=== PATIENT | male | born 1970 | race Caucasian/White ===

== ENCOUNTER → 2017-01-18 | Outpatient (CLI) | payer SELFPAY ==
--- NOTE | 2017-01-18 16:46 | KCIC ---
Coronary calcium score CT chest without contrast History: Diabetes, hyperlipidemia, hypertension Technique: With retrospective electrocardiogram gating 3.0 mm thick axial reconstructed noncontrast images of the chest at the level of the coronary arteries was performed. Images were post processed on a [employer] workstation and calcium score calculated using the modified Agatston Janowitz protocol. PQRS STATEMENT:One or more of the following in the visualized dose reduction techniques were utilized for this study: 1. Automatic exposure control, 2. Adjustment of the mA and/or kV according to patient size, 3. Use of iterative reconstruction technique Findings: Total coronary calcium score is 0. This places the patient in the lowest percentile rank which means that nearly all men of this age have a higher calcium score than this patient. There is no calcified plaque burden and very low cardiovascular disease risk. This is based on the calcium score of 0 of the left main coronary artery, 0 of the left anterior descending artery, score of 0 of the left circumflex artery and score of 0 of the right coronary artery. Noncoronary findings demonstrate no significant abnormality. Impression: Total coronary calcium score is 0. This places the patient in the lowest percentile rank which means that nearly all men of this age have a higher calcium score than this patient. There is no calcified plaque burden and very low cardiovascular disease risk. Electronically signed by: Raad Saleh MD (01/18/2017 4:43 PM)
== END | disposition home or self-care (01) ==
LOC: KCIC CT 08:00
PROVIDERS: ATTEND Family Medicine
DX: E11.9 Type 2 diabetes mellitus without complications (principal); E78.5 Hyperlipidemia, unspecified; I10 Essential (primary) hypertension; Z91.89 Other specified personal risk factors, not elsewhere classified
CPT/HCPCS: 75571

== ENCOUNTER → 2019-04-15 | Day surgery (SDC) | payer SELFPAY ==
[~2019-04-15] MED LIST: GLIP10TA13 PO; IV RINGERS,LACTATED 1000ML 1,000 ML IV SCH; LIRA0.6P SQ; LISI-338 PO; PROPOFOL 20 ML IV ONE; PROPOFOL 60 ML IV ONE; SILD20TA2 PO; TEST2.5G9 TD
[2019-04-15 14:30] VITALS: BP 121/57
--- NOTE | 2019-04-16 15:07 | PATHOLOGY ---
[facility] Accession Number: [id number] . 01 Material submitted: . PART A: stomach - ANTRUM BIOPSY PART B: colon - ASCENDING COLON POLYP. Modifiers: ascending PART C: colon - TRANSVERSE COLON POLYP. Modifiers: transverse PART D: sigmoid colon - SIGMOID POLYP . 01 Clinical history: . CRCS . 02 Diagnosis: A. Gastric biopsies, gastric antrum: - Congestion and focal slight chronic inflammation. . B. Colon biopsy, ascending colon polyp: - Tubular adenoma. . C. Colon biopsy, transverse colon polyp: - Sessile serrated polyp/adenoma. . D. Colon biopsy, sigmoid polyp: - Tubular adenoma. (JPM:[facility] 04/16/2019) [facility] 04/16/2019 1033 Local . 02 Comment: Sections of the gastric antral biopsy show congestion and focal slight chronic inflammation. A properly controlled immunoperoxidase stain for Helicobacter is negative for Helicobacter organisms. . Sections of the ascending colon and sigmoid colon biopsies reveal tubular adenomas showing no high-grade dysplasia or evidence of malignancy. . Sections of the transverse colon biopsy reveal a serrated polyp/adenoma which also shows no high-grade dysplasia or evidence of malignancy. (JPM:[facility] 04/16/2019) . Special stain performed: Immunoperoxidase for Helicobacter on A1. . 02 Electronically signed: . Marvin Warren MD, Pathologist NPI- [id number] . 01 Gross description: . A. Received in formalin labeled "Néstor Banuelos, antrum BX-gastritis," are 2 segments of yang soft tissue measuring 0.9 x 0.3 x 0.3 cm in aggregate dimensions and ranging from 0.4 to 0.5 cm in maximum dimension. The specimen is submitted entirely in cassette A1. . B. Received in formalin labeled "Néstor Banuelos, ascending colon polyp," is a single segment of yang soft tissue measuring 0.5 cm in maximum dimension. The specimen is entirely submitted in cassette B1. . C. Received in formalin labeled "Néstor Banuelos, transverse colon polyp," is a 0.9 x 0.5 x 0.4 cm polypoid piece of yang soft tissue. The margin is inked and the tissue is sectioned perpendicular to the margin and submitted entirely in cassette C1. . D. Received in formalin labeled "Néstor Banuelos, sigmoid polyp," is a 0.6 x 0.6 x 0.5 cm polypoid piece of yang soft tissue. The margin is inked and the tissue is sectioned perpendicular to the margin and submitted entirely in cassette D1. (TSD; 04/15/2019) TOB/TOB 04/15/20192025 Local . 02 Pathologist provided ICD-10: K29.50, D12.2, D12.3, D12.5 . 02 CPT . 945533, 617022, 065606, 699654, [id number] Specimen Comment: A courtesy copy of this report has been sent to Specimen Comment: [phone]. Specimen Comment: Report sent to Performed at: 01 [facility] [address], [place], [place] [id number] MD Randell Wharton MD Phone: [phone] Performed at: 02 [facility] [address] [place], [place] [id number] MD Marvin Warren MD Phone: [phone]
== END | disposition home or self-care (01) ==
LOC: ENDOS 12:01
PROVIDERS: ATTEND Internal Medicine Gastroenterology
DX: Z12.11 Encounter for screening for malignant neoplasm of colon (principal); D12.2 Benign neoplasm of ascending colon; D12.5 Benign neoplasm of sigmoid colon; D12.3 Benign neoplasm of transverse colon; K29.50 Unspecified chronic gastritis without bleeding; K21.0 Gastro-esophageal reflux disease with esophagitis; K44.9 Diaphragmatic hernia without obstruction or gangrene; K25.9 Gastric ulcer, unspecified as acute or chronic, without hemorrhage or perforation; K64.0 First degree hemorrhoids; I10 Essential (primary) hypertension; Z79.899 Other long term (current) drug therapy; Z86.73 Personal history of transient ischemic attack (TIA), and cerebral infarction without residual deficits; Z98.890 Other specified postprocedural states
CPT/HCPCS: 43239; 45381; 45385; 82962; 88305; 88342; J2704; 45380

== ENCOUNTER → 2020-05-17 | Outpatient (CLI) | payer BC ==
[2019-04-15 14:30] VITALS: BP 121/57
[~2020-05-17] MED LIST changes: -IV RINGERS,LACTATED 1000ML 1,000 ML IV SCH; -PROPOFOL 20 ML IV ONE; -PROPOFOL 60 ML IV ONE; -SILD20TA2 PO; +SILD20TA4 PO
--- NOTE | 2020-05-17 14:06 | RAD ---
EXAMINATION: VENOUS LOWER EXT BILATERAL HISTORY: Bilateral leg pain and discoloration COMPARISON/CORRELATION: None FINDINGS: Bilateral lower extremity duplex venous ultrasound exam was performed. Grayscale, color Doppler, and spectral Doppler imaging was performed. Compression and augmentation was performed. The right common femoral vein, superficial femoral vein, popliteal vein, and saphenofemoral junction are normal with no evidence of deep venous thrombus. The visualized calf veins are unremarkable. Normal compressibility and augmentation is evident. The left common femoral vein, superficial femoral vein, popliteal vein, and saphenofemoral junction are normal with no evidence of deep venous thrombus. The visualized calf veins are unremarkable. Normal compressibility and augmentation is evident. IMPRESSION: Normal bilateral lower extremity duplex ultrasound exam. No evidence of deep venous thrombus involving the lower extremities. Electronically signed by: Titi Stephen MD (05/17/2020 2:03 PM) [facility]
--- NOTE | 2020-05-17 14:32 | RAD ---
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 / Findings: Multiple grayscale, color, and duplex spectral analysis sonographic images were acquired of the lower extremity arteries bilaterally. There are no previous similar exams. Triphasic flow is present throughout the right and the left lower extremity arterial vasculature with exception of the left peroneal artery were biphasic flow is seen. No significant plaque suggested for the patient's age. Velocities in cm/sec: RIGHT Common femoral artery 125 Profunda femoris artery 54 Proximal SFA 109 Mid SFA 110 Distal SFA 56 Popliteal artery 73 Anterior tibial artery 55 Dorsalis pedis artery 61 Posterior tibial artery 101 Peroneal artery 71 LEFT: Common femoral artery 115 Profunda femoris artery 66 Proximal SFA 108 Mid SFA 81 Distal SFA 94 Popliteal artery 66 Anterior tibial artery 55 Dorsalis pedis artery 35 Posterior tibial artery 78 Peroneal artery 44 Bilateral ankle brachial indices were obtained. Systolic blood pressures obtained are in millimeters of mercury. Right Upper extremity 146 Ankle 161 with CHARLI of 1.1 Left Upper extremity 132 Ankle 155 with CHARLI of 1.0 Impression: 1. No hemodynamic stenosis. CHARLI bilaterally within normal limits. Electronically signed by: Titi Stephen MD (05/17/2020 2:29 PM) [facility]
--- NOTE | 2020-05-17 14:32 | RAD ---
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 / Findings: Multiple grayscale, color, and duplex spectral analysis sonographic images were acquired of the lower extremity arteries bilaterally. There are no previous similar exams. Triphasic flow is present throughout the right and the left lower extremity arterial vasculature with exception of the left peroneal artery were biphasic flow is seen. No significant plaque suggested for the patient's age. Velocities in cm/sec: RIGHT Common femoral artery 125 Profunda femoris artery 54 Proximal SFA 109 Mid SFA 110 Distal SFA 56 Popliteal artery 73 Anterior tibial artery 55 Dorsalis pedis artery 61 Posterior tibial artery 101 Peroneal artery 71 LEFT: Common femoral artery 115 Profunda femoris artery 66 Proximal SFA 108 Mid SFA 81 Distal SFA 94 Popliteal artery 66 Anterior tibial artery 55 Dorsalis pedis artery 35 Posterior tibial artery 78 Peroneal artery 44 Bilateral ankle brachial indices were obtained. Systolic blood pressures obtained are in millimeters of mercury. Right Upper extremity 146 Ankle 161 with CHARLI of 1.1 Left Upper extremity 132 Ankle 155 with CHARLI of 1.0 Impression: 1. No hemodynamic stenosis. CHARLI bilaterally within normal limits. Electronically signed by: Titi Stephen MD (05/17/2020 2:29 PM) [facility]
== END ==
LOC: US 12:03
PROVIDERS: ATTEND Nurse Practitioner
DX: E11.51 Type 2 diabetes mellitus with diabetic peripheral angiopathy without gangrene (principal); M79.605 Pain in left leg; M79.604 Pain in right leg
CPT/HCPCS: 93922; 93925; 93970